=== PATIENT | female | born 1980 | race Caucasian/White ===

== ENCOUNTER 2018-07-23 04:04 | Inpatient (IN) | payer OTHER ==
[2018-07-23] MEDS ORDERED: Buffered Lidocaine 1% SYRIN* 1 ML/SYRINGE INTRADERM ONE (04:18)
--- NOTE | 2018-07-23 04:36 | HP ---
General Information - Reason for Visit labor - General Information Maternal Age: 37 Grav: 4 Para: 1 SAB: 0 IEA: 2 Estimated Due Date: 07/26/18 Determined By: LMP Gestational Age in Weeks/Days: 39 w 4 d Maternal Blood Type and Rh: O Positive - Results this Serology/RPR Result: Non-Reactive Rubella Result: Immune HBsAg Result: Negative HIV Result: Negative GBS Culture Result: Negative Past Medical History Delivery History: Hx Uncomplicated Vaginal Delivery - at 36 wks Delivery History Comment: delayed PPH at 24 hrs Past Medical History Comment: sickle cell trait Past Surgical History Comment: [place] tooth extraction-1995 Family History Comment: M with bipolar disorder, PGM with hx uterine cancer - Antepartal Records Antepartal Records: Reviewed, Complicated by: - age 37 at delivery, normal NIPT Review of Systems Constitutional: Uncomfortable - with contractions CV Complaint: No Respiratory: Shortness of Breath: No - sinus congestion Gastrointestinal: No Nausea/Vomiting, Soft Stool Genitourinary: No Leaking Fluid Musculoskeletal: Contractions Neurological: No Headache Movement: Normal Exam Allergies/Adverse Reactions: Allergies No Known Allergies Allergy (Verified 02/08/14 10:35) - Measurements Height: 5 ft 7 in Weight: 183 lb Body Mass Index (BMI): 28.6 Pre- Weight: 140 lb - Exam Breast: - - soft, no masses Extremities: No Edema Heart: Normal Rhythm/Heart Sounds HEENT: No Significant Findings Lungs: Clear Bilaterally Reflexes: DTR 2+ Thyroid: No Thyromegaly - Ultrasound/Biophysical Profile Ultrasound Status: Not Done Targeted Exam Findings Estimated Weight: 7.5 lbs Cervical Exam: 5cm Effacement: 100% Station: 0 Presenting Part: Vertex Membrane Status: Intact EFM Findings - External Monitor Findings Baseline Heart Rate: 140 External Monitor Findings: No Pattern of Variable or Late Decelerations, Variability Moderate External Monitor Findings Comment: no accels yet, no decels Contractions: Moderate Contraction Frequency: every 3-4 min Assessment/Plan - Assessment Term in labor - Obstetrical Risk Factors Risk Factors Comment: Hx PPH--will place saline lock, administer pitocin after delivery - Plan Plan: Admit - Anticipate Vaginal Delivery - Date/Time of Admission Date of Admission: 07/23/18 Time of Admission: 04:15
[2018-07-23 04:44] LABS: ABS Eosinophils 0.2 10^3/ul (0-0.6); ABS Lymphocytes 1.6 10^3/ul (1.0-4.8); ABS Monocytes 0.9 10^3/ul (0-0.8); ABS Neutrophils 7.7 10^3/ul (1.5-7.7); Eosinophil % 1.5 %; Hematocrit 37 % (35-47); Hemoglobin 12.7 g/dL (12.0-16.0); Lymphocyte % 15.6 %; Mean Corpuscular HGB Conc 34 g/dL (31-36); Mean Corpuscular Hemoglobin 30 pg (27-31); Mean Corpuscular Volume 89 fL (80-97); Nucleated Red Blood Cells % 0.1; Platelet Count 217 10^3/uL (150-450); Red Blood Count 4.23 10^6 /uL (3.70-4.87); Red Cell Distribution Width 14 % (10-15); White Blood Count 10.4 10^3/uL (3.5-10.8)
--- NOTE | 2018-07-23 05:29 | PN ---
Progress Note - Progress Note Date of Service: 07/23/18 Note: Has been in tub Cervix: 7 cm/100/0 AROM: thick mec Will monitor
[2018-07-23] MEDS ORDERED: Oxytocin in LR* 20 UNITS/1,000 ML BAG IVPB ONE (05:50)
--- NOTE | 2018-07-23 06:16 | PN ---
Progress Note - Progress Note Date of Service: 07/23/18 Note: uncomfortable with contractions, starting to feel pressure Cervix: 8cm/0 FHT: mod variability, early decels Will await full dilation, urge to push
[2018-07-23] MEDS ORDERED: Witch Hazel PAD* JAR TOPICAL PRN (07:07)
[2018-07-23] MEDS ORDERED: Glycerin ADULT SUPP PR PRN (07:07)
[2018-07-23] MEDS ORDERED: Acetaminophen TAB* 325 MG PO PRN (07:07)
[2018-07-23] MEDS ORDERED: Dibucaine 1% 28.35 GM TUBE PR PRN (07:07)
--- NOTE | 2018-07-23 07:18 | PROCNOTE ---
[facility] OB: Delivery Note - Delivery A Date of : 07/23/18 Time of : 06:49 Sex: Male Score 1 Minute: 8 Score 5 Minutes: 9 Gestational Age in Weeks and Days at Delivery: 39 Weeks and 4 Days Delivery Method: Spontaneous Vaginal Labor: Spontaneous Did Patient attempt ?: N/A, No Previous Amniotic Fluid: Meconium - thick Estimated Blood Loss: 100 Anesthesia/Analgesia: None - Nursery Level of Nursery: Regular/Bedside - Perineum Perineal Injury: Abrasion Only - Not Repaired - Events Delivery Events of Note Comment: placenta with lateral insertion, accessory lobe - Additional Delivery Notes Additional Delivery Notes: SVB LMC, OA over intact perineum. CAN x1, looped over prior to delivery. with initial poor tone, decreased resp effort, pink with stimulation, blow by O2 , vigorous cry at 1 min age. Total LOL 4'53" Pushed 18 min. Placenta Naheed, heart shaped with accessory lobe, lateral insertion. Examined by me and Dr. Lizarraga for completeness. FF with massage, IV with pitocin running. EBL 100cc
[2018-07-23] MEDS ORDERED: Oxytocin in LR* 20 UNITS/1,000 ML BAG IVPB SCH (08:00)
[2018-07-23] MEDS ORDERED: Lactated Ringers 1000 ML Bag* 1,000 ML IV SCH (08:00)
[2018-07-23] MEDS: Docusate CAP* 100 MG PO SCH ×3 (13:10→22:04)
[2018-07-23] MEDS: Ibuprofen TAB* 600 MG PO PRN (13:10)
[2018-07-23] MEDS: Cetirizine* 10 MG TAB PO SCH (22:07)
[2018-07-24 06:40] LABS: Hematocrit 35 % (35-47); Hemoglobin 11.8 g/dL (12.0-16.0); Mean Corpuscular HGB Conc 34 g/dL (31-36); Mean Corpuscular Hemoglobin 30 pg (27-31); Mean Corpuscular Volume 88 fL (80-97); Mean Platelet Volume 9.1 fL (7.4-10.4); Platelet Count 186 10^3/uL (150-450); Red Blood Count 3.99 10^6 /uL (3.70-4.87); Red Cell Distribution Width 14 % (10-15); White Blood Count 12.3 10^3/uL (3.5-10.8)
[2018-07-24] MEDS: Docusate CAP* 100 MG PO SCH ×2 (08:58→20:09)
[2018-07-24] MEDS: Ibuprofen TAB* 600 MG PO PRN (08:58)
[2018-07-25] MEDS: Ibuprofen TAB* 600 MG PO PRN ×2 (00:15→08:56)
[2018-07-25] MEDS: Ferrous Gluconate TAB* 324 MG TAB PO SCH ×2 (07:17→10:02)
[2018-07-25] MEDS: Docusate CAP* 100 MG PO SCH ×2 (07:17→08:56)
[2018-07-25] MEDS: Cetirizine* 10 MG TAB PO SCH ×3 (07:17→11:06)
[2018-07-25 08:29] VITALS: BP 113/83
== END 2018-07-25 11:49 | disposition home or self-care (01) | DRG 807 ==
LOC: MCHOBOUT 04:04 → MCHOB 04:19
PROVIDERS: ADMIT Midwife; ATTEND Midwife
PROC: 10E0XZZ Delivery of Products of Conception, External Approach (ICD-10-PCS; principal; 2018-07-23)
PROC: 4A1HXCZ Monitoring of Products of Conception, Cardiac Rate, External Approach (ICD-10-PCS; 2018-07-23)
PROC: 10907ZC Drainage of Amniotic Fluid, Therapeutic from Products of Conception, Via Natural or Artificial Opening (ICD-10-PCS; 2018-07-23)
DX: O69.81X0 Labor and delivery complicated by cord around neck, without compression, not applicable or unspecified (principal); Z37.0 Single live birth; O43.193 Other malformation of placenta, third trimester; O76 Abnormality in fetal heart rate and rhythm complicating labor and delivery; O71.82 Other specified trauma to perineum and vulva; O77.0 Labor and delivery complicated by meconium in amniotic fluid; Z3A.39 39 weeks gestation of pregnancy
CPT/HCPCS: 36415; 85025; 85027; 86850; 86900; 86901; A9270-GY